=== PATIENT | female | born 1945 | race Caucasian/White ===

== ENCOUNTER 2022-08-21 15:34 | Emergency (ER) | payer OTHER, SELFPAY ==
[2022-08-21] VITALS (13 sets, daily range): BP systolic 136–144; BP diastolic 66–89; PULSE 52–65; RESP 13–18; TEMP 36.4; O2SAT 94–100
--- NOTE | ~2022-08-21 | XR_ITS ---
EXAMINATION: XR thoracic spine 3V, XR lumbar spine 2-3V DATE: 08/21/2022 18:13 INDICATION: Nontraumatic upper and lower back pain TECHNIQUE: 1. One AP, lateral and lateral swimmer's views of the thoracic spine were obtained. 2. AP, lateral and coned-down lateral lumbosacral views of the lumbar spine were obtained. COMPARISON: Chest radiograph dated 10/10/2010 FINDINGS: Thoracic spine: S-shaped scoliosis of the thoracic spine with 30 degrees levoscoliosis between T1 and T7 and 30 degre es dextro scoliosis between T7 and T11. Mild anterior wedging at T5 with 20% anterior vertebral body height loss. Mild to moderate disc height loss at multiple levels in the midthoracic spine. Severe lo wer cervical spondylosis with moderate to severe cervical facet osteoarthritis. Bilateral calcified p ulmonary nodules along with calcified bilateral hilar and mediastinal lymph nodes and multiple spleni c calcific lesions all consistent with old granulomatous disease. Lumbar spine: 4 mm anterolisthesis L4 on L5. Vertebral body heights are normal. Severe disc height loss at L5-S1. S evere lower lumbar facet osteoarthritis. Mild bilateral sacroiliac osteoarthritis. Postoperative robert ges in the pelvis with multiple sutures. Atherosclerotic calcification along the aorta and right jaden c arteries. IMPRESSION: 1. Moderate S-shaped scoliosis of the thoracic spine with mild to moderate spondylosis. 2. T5 compression fracture with 20% anterior vertebral body height loss. 3. 4 mm anterolisthesis L4 on L5 with severe spondylosis at L5-S1. 4. Severe cervical spondylosis. Reviewed, dictated and finalized at location A. FACTURING HELPER IMPRESSION: 1. Moderate S-shaped scoliosis of the thoracic spine with mild to moderate spon dylosis. 2. T5 compression fracture with 20% anterior vertebral body height loss. 3. 4 mm anterolisthesis L4 on L5 with severe spondylosis at L5-S1. 4. Severe cervical spondylosis.
--- NOTE | ~2022-08-21 | XR_ITS ---
EXAMINATION: XR chest 1V portable INDICATION: Chest pain and body TECHNIQUE: Portable AP chest at 1621 hours COMPARISON: 10/10/2010 FINDINGS: The lungs are free of acute opacities. No pleural effusion or pneumothorax. The cardiomedia stinal silhouette is normal. There is thoracic dextroscoliosis surgical clips are noted in the right axilla.. IMPRESSION: 1. No acute cardiopulmonary abnormality. Reviewed, dictated and finalized at location B. DMAKER
--- NOTE | 2022-08-21 15:44 | ECG_ITS ---
Measurements Intervals [place] Rate: 53 P: 49 HI: 203 QRS: 12 QRSD: 103 T: 53 QT: 410 QTc: 387 Interpretive Statements SINUS BRADYCARDIA NO PREVIOUS ECG AVAILABLE FOR COMPARISON Electronically Signed On 08-22-2022 8:35:09 [employer]SE OPERATOR by Sonya Shelby M.D.
[2022-08-21 16:18] LABS: Basophils Percent Auto 0.6 % (0.2-1.2); Eosinophils Absolute Auto 0.2 K/mm3 (0-0.3); Eosinophils Percent Auto 3.1 % (0-4.4); Hematocrit 38.1 % (37.0-47.0); Immature Granulocyte Absolute 0.02 K/mm3 (0.00-0.031); Immature Granulocyte Percent A 0.4 % (0-0.5); Lymphocytes Absolute Auto 1.46 K/mm3 (0.9-3.2); Mean Corpuscular HGB Conc 34.1 g/dl (32-36); Mean Corpuscular Hemoglobin 30.5 pg (26-34); Mean Corpuscular Volume 89.4 fl (80-100); Mean Platelet Volume 9.6 fl (7.4-10.4); Monocytes Absolute Auto 0.3 K/mm3 (0.1-0.6); Monocytes Percent Auto 5.9 % (2.6-8.5); Neutrophils Absolute Auto 3.4 K/mm3 (1.3-6.7); Platelet Count Result 176 k/mm3 (150-375); Red Blood Count 4.26 M/mm3 (4.2-5.4); Red Cell Distribution Width 11.7 % (11.5-14.5); White Blood Count 5.4 K/mm3 (4.5-10.0)
[2022-08-21 16:30] LABS: Prothrombin Time 12.4 Seconds (11.1-14.7)
[2022-08-21 16:31] LABS: Partial Thromboplastin Time 24.6 SECONDS (22.3-36.8)
[2022-08-21 16:37] LABS: Alanine Aminotransferase 20 U/L (6-35); Albumin Level 3.9 g/dL (3.5-5.1); Alkaline Phosphatase 62 U/L (38-126); Anion Gap 3 mmol/L (8-16); Aspartate Amino Transferase 23 U/L (14-36); Bilirubin,Total 0.5 mg/dL (0.2-1.3); Blood Urea Nitrogen 17 mg/dL (7-17); Calcium 8.7 mg/dL (8.4-10.2); Carbon Dioxide 31 mmol/L (22-30); Chloride 104 mmol/L (98-107); Estimated CRCL calculation 47 ml/min; Estimated Glomerular Filt Rate > 60; Glucose 82 mg/dL (65-110); Lipase 40 U/L (23-300); Potassium 3.8 mmol/L (3.4-5.0); Sodium 138 mmol/L (137-145)
[2022-08-21 16:47] LABS: Troponin I < 0.012 ng/mL (0.000-0.034)
--- NOTE | 2022-08-21 17:40 | ED.URI ---
HPI - URI/Sore Throat General Chief Complaint: Upper Respiratory Infection Stated Complaint: chest congestion/back pain Time Seen by Provider: 08/21/22 17:10 Source: patient Mode of arrival: ambulatory Limitations: no limitations History of Present Illness HPI Narrative: Patient is 76 years old white female presents with coughing, chest congestion and headache, not feeling well. 10 days after tested positive for COVID-19. Patient is fully vaccinated, last booster dose was 2 weeks prior to the infection. Patient denies any fever, chills, nausea, vomiting or shortness of breath. Patient also telling me that she had back pain after if she was trying to lift a heavy customer who had COVID at that time. Patient works as a caregiver. Related Data Allergies Allergy/AdvReac Type Severity Reaction Status Date / Time tetracycline Allergy Unknown Verified 08/21/13 14:27 Review of Systems Review of Systems: All systems reviewed & are unremarkable except as noted in HPI and below PMFSH Family History Family History Mother Hypertension Family history of diabetes mellitus in first degree relative Grandparent Diabetes mellitus Social History Social History Smoking status: Former smoker Smoking end date: 07/12/89 Alcohol intake: current Exam Narrative: General appearance: Well-developed, well-nourished Skin: Normal color Head: Normocephalic, nontraumatic Eyes: Clear conjunctiva ENT: Oropharynx normal, ears normal, nose normal Neck: Supple, nontender Chest and respiratory: Airway patent, no respiratory distress, no accessory muscle use Heart: Regular rate/rhythm Abdomen: Soft, nontender, no organomegaly, quiet bowel sounds Vascular: Normal peripheral pulses, normal capillary refill. Musculoskeletal: Diffuse tenderness of the thoracic and lumbar spine, no bruises, no swelling or rash Neurologic: Alert and oriented ?3, CAN DRAGGER is normal as tested, no gross motor deficit Course Vital Signs Vital signs: Vital Signs Temperature 36.4 C 08/21/22 15:42 Pulse Rate 65 08/21/22 15:42 Respiratory Rate 14 08/21/22 15:42 Blood Pressure 141/68 H 08/21/22 15:42 Pulse Oximetry 98 08/21/22 15:42 Oxygen Delivery Room Air 08/21/22 15:42 Temperature 36.4 C 08/21/22 15:42 Pulse Rate 54 L 08/21/22 17:45 Respiratory Rate 15 08/21/22 17:45 Blood Pressure 144/66 H 08/21/22 15:53 Pulse Oximetry 96 08/21/22 17:45 Oxygen Delivery Room Air 08/21/22 15:52 MDM - URI/Sore Throat MDM Narrative Medical decision making narrative: Patient presents with COVID infection symptoms, and tested +10 days prior to arrival to the emergency room. Physical examination showed diffuse tenderness along the thoracic and lumbar spine, COVID infection lingering effect plus complication is main concern at this time including pneumonia, or electrolyte imbalance. Labs, chest x-ray, ordered. Toradol 15 mg IV, morphine 4 mg IV, Zofran 4 mg IV ordered. Blood work-up showed no acute abnormality, Chest x-ray showed no acute abnormality. X-ray of the thoracic spine and lumbar spine showed T5 compression fracture with 20% anterior vertebral body height loss. Patient told me that she had history of compression fracture of her back. Referral to neurosurgeon is recommended. The pt was discharged to home.the pt,s condition upon discharge was fair,education was provided to the pt in reference to the final impression,discharge study results,treatment,prognosis and need for follow up . Differential Diagnosis Differential diagnosis: Likely viral infection, bronchit
[2022-08-21] MEDS: KETOROLAC 15 MG/ML VIAL (*BKC) IV PUSH (18:38)
[2022-08-21] MEDS: MORPHINE SULFATE (*CRX) 4 MG/ML INJ IV PUSH (18:38)
[2022-08-21] MEDS: ONDANSETRON INJ 4 MG/2 ML VIAL IV PUSH (18:39)
[2022-08-21 19:08] LABS: Troponin I < 0.012 ng/mL (0.000-0.034)
== END 2022-08-21 19:16 | disposition home or self-care (01) ==
PROVIDERS: Emergency Provider Emergency Medicine
DX: U07.1 COVID-19 (principal); S22.050A Wedge compression fracture of T5-T6 vertebra, initial encounter for closed fracture; M41.9 Scoliosis, unspecified; Z87.891 Personal history of nicotine dependence; M47.814 Spondylosis without myelopathy or radiculopathy, thoracic region; M47.812 Spondylosis without myelopathy or radiculopathy, cervical region; M47.817 Spondylosis without myelopathy or radiculopathy, lumbosacral region; R00.1 Bradycardia, unspecified; X50.0XXA Overexertion from strenuous movement or load, initial encounter
CPT/HCPCS: 36415; 71045; 72072; 72100; 80053; 83690; 84484; 85025; 85610; 85730; 93005; 96374; 96375; 99284; J1885; J2270; J2405

== ENCOUNTER 2023-03-06 14:54 | Outpatient (CLI) | payer OTHER, SELFPAY ==
--- NOTE | ~2023-03-06 | XR_ITS ---
XR_[id number] DATE: 03/06/2023 15:14 INDICATION: Bilateral knee pain TECHNIQUE: Standing AP and lateral views COMPARISON: None FINDINGS: There is osteopenia. No fracture or dislocation, periosteal reaction or bone destruction. Small suprapatellar knee joint effusion is suggested. There is periarticular spurring at all 3 compartments, more prominent at the medial and patellofemora l compartments. There is mild loss of height at the medial compartment joint space. No fracture or dislocation, periosteal reaction or bone destruction. No radiopaque intra-articular lo ose body or chondrocalcinosis is noted. Mild atherosclerotic calcification of the femoral, popliteal arteries IMPRESSION: Tricompartment osteoarthritis Osteopenia Reviewed, dictated and finalized at [facility]. Reviewed, dictated and finalized at location [facility].
--- NOTE | ~2023-03-06 | XR_ITS ---
XR_[id number] DATE: 03/06/2023 15:14 INDICATION: Bilateral knee pain TECHNIQUE: Standing AP and lateral views COMPARISON: None FINDINGS: Mild suprapatellar knee joint effusion is suggested. There is prominent loss of medial compartment joint space, with prominent particular spurring of the medial femoral condyle and medial tibial plateau. Lateral compartment joint space is relatively preserved. Moderately prominent periarticular spurring of the patellofemoral joint. Mild osteopenia. No fracture, dislocation, periosteal reaction or bone destruction, radiopaque intra-articular loose b shawn or chondrocalcinosis. Femoral, popliteal and trifurcation artery calcifications. IMPRESSION: Osteoarthritis involving particularly the lateral and patellofemoral compartments Mild suprapatellar knee joint effusion is suggested Osteopenia Atherosclerosis Reviewed, dictated and finalized at [facility]. Reviewed, dictated and finalized at location [facility]. IMPRESSION: Osteoarthritis involving particularly the lateral and patellofemora l compartments Mild suprapatellar knee joint effusion is suggested Osteopenia Atherosclerosis
== END 2023-03-06 14:55 | disposition home or self-care (01) ==
DX: M25.561 Pain in right knee (principal); M25.562 Pain in left knee
CPT/HCPCS: 73560